=== PATIENT | female | born 1980 | race Caucasian/White ===

== ENCOUNTER 2017-09-12 23:09 | Emergency (ER) | payer MEDICAID ==
[2017-09-13 00:58] LABS: ADD MAN DIFF? NO
[2017-09-13 01:00] LABS: BASOPHILS % 0.4 % (0.0-2.0); EOSINOPHILS # 0.1 10^3/ul (0.0-0.5); HEMATOCRIT 29.8 % (37.0-47.0); HEMOGLOBIN 10.5 g/dl (12.0-16.0); LYMPHOCYTES % 17.4 % (15.0-51.0); MEAN CORPUSCULAR HEMOGLOBIN 28.4 pg (29.0-33.0); MEAN CORPUSCULAR HGB CONC 35.2 g/dl (32.0-37.0); MEAN CORPUSCULAR VOLUME 80.5 fl (82.0-101.0); MEAN PLATELET VOLUME 12.4 fl (7.4-10.4); MONOCYTE # 0.4 10^3/ul (0.3-0.9); MONOCYTES % 7.7 % (0.0-11.0); NEUTROPHIL # 4.1 10^3/ul (1.6-7.5); NEUTROPHILS % 72.3 % (39.0-77.0); PLATELET COUNT 190 10^3/UL (140-415); RED CELL DISTRIBUTION WIDTH 13.4 % (11.5-14.5)
[2017-09-13 01:00] LABS: WHITE BLOOD COUNT 5.6 10^3/ul (4.8-10.8)
[2017-09-13 01:04] LABS: ADD UMIC YES; UR ASCORBIC ACID NEGATIVE (NEGATIVE); UR BILIRUBIN (Dip) NEGATIVE (NEGATIVE); UR BLOOD (Dip) 3+ mg/dL (NEGATIVE); UR CLARITY CLEAR (CLEAR); UR COLOR STRAW (YELLOW); UR GLUCOSE (Dip) NEGATIVE (NEGATIVE); UR KETONES (Dip) NEGATIVE (NEGATIVE); UR LEUKOCYTE ESTERASE (Dip) TRACE Leu/ul (NEGATIVE); UR NITRITE (Dip) NEGATIVE (NEGATIVE); UR RBC 22 /HPF (0-5); UR SPECIFIC GRAVITY (Dip) 1.009 (1.003-1.030); UR TOTAL PROTEIN (Dip) NEGATIVE (NEGATIVE); UR UROBILINOGEN (Dip) NEGATIVE (NEGATIVE); UR WBC 2 /HPF (0-5)
[2017-09-13 02:18] LABS: ADD MAN DIFF? NO
[2017-09-13 02:27] LABS: WHITE BLOOD COUNT 4.8 10^3/ul (4.8-10.8)
[2017-09-13 02:27] LABS: BASOPHILS % 0.4 % (0.0-2.0); EOSINOPHILS # 0.1 10^3/ul (0.0-0.5); EOSINOPHILS % 1.7 % (0.0-7.0); HEMOGLOBIN 10.2 g/dl (12.0-16.0); LYMPHOCYTES # 0.9 10^3/ul (0.8-2.9); LYMPHOCYTES % 19.3 % (15.0-51.0); MEAN CORPUSCULAR HEMOGLOBIN 28.4 pg (29.0-33.0); MEAN CORPUSCULAR HGB CONC 35.2 g/dl (32.0-37.0); MEAN CORPUSCULAR VOLUME 80.8 fl (82.0-101.0); MEAN PLATELET VOLUME 12.5 fl (7.4-10.4); MONOCYTE # 0.4 10^3/ul (0.3-0.9); MONOCYTES % 7.9 % (0.0-11.0); NEUTROPHIL # 3.4 10^3/ul (1.6-7.5); NEUTROPHILS % 70.5 % (39.0-77.0); PLATELET COUNT 179 10^3/UL (140-415); RED BLOOD COUNT 3.59 10^6/ul (4.20-5.40); RED CELL DISTRIBUTION WIDTH 13.4 % (11.5-14.5)
[2017-09-13] MEDS: SOD CHLORIDE 0.9% 1,000 ML IV (02:51)
== END 2017-09-13 03:14 | disposition home or self-care (01) ==
LOC: FTE 23:09
DX: N93.9 Abnormal uterine and vaginal bleeding, unspecified (principal)
CPT/HCPCS: 36415; 76801; 76817; 81001; 84702; 85025; 86900; 86901; 99285-25

== ENCOUNTER 2019-04-05 22:50 | Emergency (ER) | payer MEDICAID | END 2019-04-06 00:20 | disposition left against medical advice (07) | LOC: FTE 04-06 00:20 | DX: Z53.21 Procedure and treatment not carried out due to patient leaving prior to being seen by health care provider (principal) ==

== ENCOUNTER 2019-04-06 00:30 | Outpatient (CLI) | payer MEDICAID | END 2019-04-06 03:35 | disposition home or self-care (01) | LOC: OBT 00:30 → L-D 00:30 → OBT 03:35 | DX: O26.892 Other specified pregnancy related conditions, second trimester (principal); Z3A.22 22 weeks gestation of pregnancy; O30.002 Twin pregnancy, unspecified number of placenta and unspecified number of amniotic sacs, second trimester; V43.62XA Car passenger injured in collision with other type car in traffic accident, initial encounter; Y92.410 Unspecified street and highway as the place of occurrence of the external cause | CPT/HCPCS: 76815 ==

== ENCOUNTER 2019-04-13 17:50 | Inpatient (IN) | payer MEDICAID ==
[2019-04-13 19:11] LABS: ADD UMIC NO; UR ASCORBIC ACID NEGATIVE (NEGATIVE); UR BILIRUBIN (Dip) NEGATIVE (NEGATIVE); UR BLOOD (Dip) NEGATIVE (NEGATIVE); UR CLARITY SLIGHTLY CLOUDY (CLEAR); UR COLOR YELLOW (YELLOW); UR GLUCOSE (Dip) NEGATIVE (NEGATIVE); UR KETONES (Dip) NEGATIVE (NEGATIVE); UR LEUKOCYTE ESTERASE (Dip) NEGATIVE Leu/ul (NEGATIVE); UR NITRITE (Dip) NEGATIVE (NEGATIVE); UR RBC 1 /HPF (0-5); UR SPECIFIC GRAVITY (Dip) 1.012 (1.003-1.030); UR SQUAMOUS EPITHELIAL CELL FEW /HPF (FEW); UR TOTAL PROTEIN (Dip) NEGATIVE (NEGATIVE); UR UROBILINOGEN (Dip) NEGATIVE (NEGATIVE); UR WBC 1 /HPF (0-5)
[2019-04-13 19:25] LABS: WHITE BLOOD COUNT 8.9 10^3/ul (4.8-10.8)
[2019-04-13 19:25] LABS: ADD MAN DIFF? NO; BASOPHILS % 0.2 % (0.0-2.0); EOSINOPHILS # 0.1 10^3/ul (0.0-0.5); EOSINOPHILS % 0.8 % (0.0-7.0); HEMATOCRIT 29.6 % (37.0-47.0); HEMOGLOBIN 9.8 g/dl (12.0-16.0); LYMPHOCYTES # 0.8 10^3/ul (0.8-2.9); LYMPHOCYTES % 9.2 % (15.0-51.0); MEAN CORPUSCULAR HGB CONC 33.1 g/dl (32.0-37.0); MEAN CORPUSCULAR VOLUME 87.6 fl (82.0-101.0); MEAN PLATELET VOLUME 12.6 fl (7.4-10.4); MONOCYTE # 0.7 10^3/ul (0.3-0.9); MONOCYTES % 7.3 % (0.0-11.0); NEUTROPHIL # 7.3 10^3/ul (1.6-7.5); NEUTROPHILS % 81.9 % (39.0-77.0); PLATELET COUNT 150 10^3/UL (140-415); RED BLOOD COUNT 3.38 10^6/ul (4.20-5.40); RED CELL DISTRIBUTION WIDTH 13.6 % (11.5-14.5)
[2019-04-13 19:47] LABS: ALANINE AMINOTRANSFERASE 24 IU/L (13-69); ALBUMIN 3.5 g/dl (3.3-4.9); ALBUMIN/GLOBULIN RATIO 1.09; ALKALINE PHOSPHATASE 72 IU/L (42-121); ANION GAP 6 (5-13); ASPARTATE AMINO TRANSFERASE 20 IU/L (15-46); BILIRUBIN,INDIRECT 0.3 mg/dl (0-1.1); BILIRUBIN,TOTAL 0.3 mg/dl (0.2-1.3); BLOOD UREA NITROGEN 4 mg/dl (7-20); CALCIUM 8.8 mg/dl (8.4-10.2); CARBON DIOXIDE 25 mmol/L (21-31); CHLORIDE 103 mmol/L (97-110); CREATININE 0.48 mg/dl (0.44-1.00); Estimated GFR > 60 mL/min (>60); GLUCOSE 104 mg/dl (70-220); POTASSIUM 4.1 mmol/L (3.5-5.1); SODIUM 134 mmol/L (135-144); TOTAL PROTEIN 6.7 g/dl (6.1-8.1)
[2019-04-13] MEDS ORDERED: LACTATED RINGER'S 1,000 ML IV (20:34)
[2019-04-13] MEDS ORDERED: MAGNESIUM SULFATE 20 GM/500 ML 500 ML IV (20:34)
[2019-04-13] MEDS: LACTATED RINGER'S 1,000 ML IV ×2 (20:38→22:00)
[2019-04-13] MEDS ORDERED: BETAMET NA PHOS/AC(6 MG/ML) 2 ML INJ SYG IM (21:00)
[2019-04-13] MEDS ORDERED: MAGNESIUM SULFATE 4 GM/100 ML 100 ML IV (21:00)
[2019-04-13] MEDS: MAGNESIUM SULFATE 4 GM/100 ML 100 ML IV (21:56)
[2019-04-13] MEDS: MAGNESIUM SULFATE 40GM/1000ML 1,000 ML IV (22:25)
[2019-04-14] MEDS: BETAMET NA PHOS/AC(6 MG/ML) 2 ML INJ SYG IM ×2 (00:09→23:34)
[2019-04-14] MEDS: BUTORPHANOL 2 MG INJ IV (00:10)
[2019-04-14 01:07] LABS: MAGNESIUM 3.9 mg/dl (1.7-2.5)
[2019-04-14 09:01] LABS: MAGNESIUM 3.4 mg/dl (1.7-2.5)
[2019-04-14] MEDS: LACTATED RINGER'S 1,000 ML IV ×2 (10:27→21:01)
[2019-04-14 12:17] LABS: MAGNESIUM 4.5 mg/dl (1.7-2.5)
[2019-04-14] MEDS ORDERED: CALCIUM CARBONATE 750 MG CHEW TAB PO (18:00)
[2019-04-14] MEDS: ACETAMINOPHEN 325 MG TAB PO (18:12)
[2019-04-14 19:25] LABS: MAGNESIUM 4.9 mg/dl (1.7-2.5)
[2019-04-14] MEDS: FERROUS SULFATE (EC) 325 MG TAB PO (21:56)
[2019-04-14] MEDS: MAGNESIUM SULFATE 40GM/1000ML 1,000 ML IV (23:07)
[2019-04-15 01:13] LABS: MAGNESIUM 5.2 mg/dl (1.7-2.5)
[2019-04-15 06:47] LABS: MAGNESIUM 5.5 mg/dl (1.7-2.5)
[2019-04-15] MEDS: DOCUSATE SODIUM 100 MG CAP PO (08:57)
[2019-04-15] MEDS: FERROUS SULFATE (EC) 325 MG TAB PO ×2 (08:57→21:44)
[2019-04-15] MEDS: PRENATAL VITAMIN PO (08:57)
[2019-04-15] MEDS: LACTATED RINGER'S 1,000 ML IV (11:34)
[2019-04-16] MEDS: FERROUS SULFATE (EC) 325 MG TAB PO ×2 (09:35→21:30)
[2019-04-16] MEDS: PRENATAL VITAMIN PO (09:35)
[2019-04-16] MEDS: DOCUSATE SODIUM 100 MG CAP PO (09:36)
== END 2019-04-16 22:50 | disposition home or self-care (01) | DRG 831 ==
LOC: OBT 17:50 → L-D 17:54 → OBT 20:34 → L-D 20:34 → PP1 22:36
DX: O30.042 Twin pregnancy, dichorionic/diamniotic, second trimester (principal); O60.02 Preterm labor without delivery, second trimester; O26.872 Cervical shortening, second trimester; O09.522 Supervision of elderly multigravida, second trimester; Z3A.23 23 weeks gestation of pregnancy
CPT/HCPCS: 74181; 76705; 76815; 76817; 80053; 81001; 81003; 83735; 85025